=== PATIENT | male | born 1960 | race Two or more races ===

== ENCOUNTER 2022-10-26 19:06 | Emergency (ER) | payer MEDICAID, OTHER ==
[~2022-10-26] VITALS: Ht 167.6 cm; Wt 63.5 kg
--- NOTE | 2022-10-26 19:51 | NUR ---
COVID SWAB SENT TO LAB
[2022-10-26 20:10] LABS: BASOPHILS # (AUTO) 0.1 K/uL (0.0-0.2); BASOPHILS % (AUTO) 1.3 % (0.0-2.0); EOSINOPHILS % (AUTO) 3.5 % (0.0-6.0); HEMATOCRIT 34 % (39-51); LYMPHOCYTES # (AUTO) 2.9 K/uL (0.8-4.8); LYMPHOCYTES % (AUTO) 33.2 % (20.0-44.0); MEAN CORPUSCULAR HGB CONC 32 g/dl (31.0-36.0); MEAN CORPUSCULAR VOLUME 81 fL (80-96); MONOCYTES % (AUTO) 11.2 % (2.0-12.0); NEUTROPHILS # (AUTO) 4.4 K/uL (1.8-8.9); NEUTROPHILS % (AUTO) 50.8 % (43.0-81.0); PLATELET COUNT (AUTO) 221 K/uL (150-450); RED BLOOD CELL COUNT(AUTO) 4.23 MIL/uL (4.5-6.0); WHITE BLOOD COUNT (AUTO) 8.6 K/uL (4.3-11.0)
[2022-10-26 20:22] LABS: CALCIUM, SERUM 10.6 mg/dL (8.5-10.1); CARBON DIOXIDE 31 mmol/L (21-32); CHLORIDE 94 mmol/L (98-107); CREATININE 0.8 mg/dL (0.6-1.3); GLUCOSE 108 mg/dL (74-106); POTASSIUM 5.5 mmol/L (3.5-5.1); SODIUM SERUM 129 mmol/L (136-145); UREA NITROGEN, BLOOD 19 mg/dL (7-18)
[2022-10-26 20:28] LABS: ALANINE AMINOTRANSFERASE 170 U/L (12-78); ALKALINE PHOSPHATASE 289 U/L (46-116); ASPARTATE AMINOTRANSFERASE 63 U/L (15-37); BILIRUBIN,DIRECT 0.2 mg/dL (0.0-0.2); BILIRUBIN,TOTAL 0.5 mg/dL (0.2-1.0)
--- NOTE | 2022-10-26 20:30 | NUR ---
RT NOTE PT CAME IN FOR ALTERED MENTAL STATUS. PT IS TRACH'D VIA [place] 9 CUFFED TRACH TUBE. PLACED ON [facility] VENT ON SETTINGS AC 12,500,40%,+5. PT BROUGHT TO CT AND PLACED BACK ON VENT. ALARMS ARE SET AND AUDIBLE. NO S/S OF RESP DISTRESS AT THIS TIME.
[2022-10-26 20:31] LABS: SERUM AMMONIA 30 umol/L (11-32)
--- NOTE | 2022-10-26 20:41 | NUR ---
PT IN BED OBTUNDED VENT TRACH BREATHING IS EVEN NO FIGHTING THE VENT. O2 SAT 100% ON 40% O2. C/O: ALTERED FROM BASELINE, REPOSNIVE TO PAINFUL STIMULI, CAN NOT FOLLOW DIRECTION PERIPHERAL PULSES PALPATED +2 V/S WNL PT CONNECTED TO BEDISDE MONITORING SIDERAILS UP HOB IN LOW FOWLERS. OGDEN CATHETER STARTED URINE IS CLEAR AND YELLOW. LARGE MASS NOTED ON HEAD IS A CHRONIC CONDITION.
[2022-10-26 21:58] LABS: BILIRUBIN,URINE NEGATIVE (NEGATIVE); COLOR,URINE YELLOW (YELLOW); LEUKOCYTE ESTERASE ,URINE NEGATIVE (NEGATIVE); NITRITE, URINE NEGATIVE (NEGATIVE); PROTEIN,URINE NEGATIVE (NEGATIVE); UGLUCOSE NEGATIVE (NEGATIVE); UROBILINOGEN,URINE 0.2 EU/dL (0.2)
[2022-10-26 22:09] LABS: BACTERIA,URINE None seen /HPF (None Seen); SQUAMOUS EPITHELIAL CELL,UR 0-2 /HPF (None Seen); WBC,URINE 0-2 /HPF (0-3)
--- NOTE | 2022-10-26 22:10 | NUR ---
Clotilde robison in EDM - 10/26/22 at 2223 by RUTHANN SPOKE TO LOCO AT [facility] AND SHE SAID THEY ARE UNABLE TO FIND THE PAST HEAD CT SCAN REQUESTESD BY DR HOPPER. STATED PT HAD ST [facility]
--- NOTE | 2022-10-26 22:23 | NUR ---
SPOKE [facility] AT [facility] AND SHE SAID THEY ARE UNABLE TO FIND THE PAST HEAD CT SCAN REQUESTESD BY DR HOPPER. STATED IVANIA GANN HAD THE SURGERY AT [facility]
--- NOTE | 2022-10-26 23:36 | NUR ---
DR ANGELINA MARSH
--- NOTE | 2022-10-26 23:38 | NUR ---
DR HOPPER ON PHONE WITH DR ALFARO
--- NOTE | 2022-10-27 00:15 | NUR ---
SPOKE TO NURSING MOLDING UTILITY WORKER XANDER AT [facility], SAID SHE WOULD FAX US THE MEDICAL RECORDS REGARDING THE PATIENTS PREVIOUS BRAIN SURGERY ONCE SHE HAS RECEIVD CONSENT TO RELEASE INFORMATION
--- NOTE | 2022-10-27 00:18 | NUR ---
FAXED NURSING DIETARY CLERK XANDER THE CONSENT TO RELEASE INFORMATION
--- NOTE | 2022-10-27 02:05 | NUR ---
[facility] #[phone]
--- NOTE | 2022-10-27 02:44 | NUR ---
DR MICHAEL MARSH.
--- NOTE | 2022-10-27 06:32 | NUR ---
[facility] CALLED FOR RT TRANSPORT ETA 1100
--- NOTE | 2022-10-27 07:40 | NUR ---
[facility] CALLED WITH UPDATED ETA [phone]
--- NOTE | 2022-10-27 07:53 | NUR ---
RE[facility] GIV[facility] AT [facility] AND INFORMED PT WILL BE TRANSPORTED BACK TO FACILITY
[2022-10-27 08:46] VITALS: BP 131/95
--- NOTE | 2022-10-27 09:00 | NUR ---
TRANSPORTATION ARRIVED, REPORT GIVEN, PT TRANSPORT BACK TO [facility]
== END 2022-10-27 09:11 ==
LOC: ER 19:08
DX: G91.9 Hydrocephalus, unspecified (principal); Z99.11 Dependence on respirator [ventilator] status; Z87.828 Personal history of other (healed) physical injury and trauma; Z20.822 Contact with and (suspected) exposure to COVID-19
CPT/HCPCS: 99291; 93005; 71045; 70450; 82140; 85025; 80048; 80076; 81001; 36415; 84484; 85730; 87081; 31720 ×2; 99082; 87426; 94799 ×2; C9803; 94002-TC